=== PATIENT | female | born 1970 | race Caucasian/White ===

== ENCOUNTER → 2016-11-05 | Outpatient (CLI) | payer BC ==
[~2016-11-05] MED LIST: HYDR-757 PO; SULF1TAB35 PO
--- NOTE | 2016-11-06 13:40 | Diagnostic Imaging Report ---
Bilateral screening mammogram. The current study was also evaluated with a Computer Aided Detection (CAD) system. INDICATION: Screening. No current complaints stated on the questionnaire. COMPARISON: 10/24/14 FINDINGS: The breasts are composed of scattered fibroglandular densities. Occasional benign-appearing calcifications are seen. Allowing for technique and positional differences, no suspicious change is seen. IMPRESSION: No significant change. ACR BI-RADS Category 2: Benign findings. Result letter will be mailed to the patient. Note: At least 10% of breast cancer is not imaged by mammography. Dictated by: Dictated on workstation # [id number]
== END ==
LOC: RAD 13:28
PROVIDERS: ATTEND Obstetrics & Gynecology
DX: Z12.31 Encounter for screening mammogram for malignant neoplasm of breast (principal)
CPT/HCPCS: 77067

== ENCOUNTER → 2018-03-25 | Outpatient (CLI) | payer BC ==
[~2018-03-25] MED LIST changes: +ACHD5005 PO; +HYDR-4226 PO; -HYDR-757 PO
--- NOTE | 2018-03-25 11:44 | Diagnostic Imaging Report ---
INDICATION: Followup fracture. Patient complains of tingling in the hand. TIME OF EXAM: 11:56 AM Correlation is made with prior left hand radiograph from 02/11/2018. FINDINGS: Fracture involving the base of the fifth metacarpal is again seen. Fracture line remains clearly visible. Overall alignment remains anatomic. No new fracture is seen. Remaining metacarpals are intact. Phalanges are intact. Carpus is unremarkable. IMPRESSION: Fracture at the base of fifth metacarpal remains clearly visible without significant healing. Overall alignment is anatomic. Dictated by: Dictated on workstation # [id number]
== END ==
LOC: RAD 11:18
DX: S62.347 Nondisplaced fracture of base of fifth metacarpal bone, left hand (principal)
CPT/HCPCS: 73130

== ENCOUNTER 2019-12-21 22:36 | Emergency (ER) | payer BC ==
[~2019-12-21] VITALS: Ht 170 cm; Wt 85.0 kg
[2019-12-21] MEDS ORDERED: TETANUS,DIPTH,PERTUSS P/F (BOOSTRIX) 0.5 ML VIAL IM ONE (23:45)
[2019-12-21] MEDS ORDERED: KETOROLAC 60 MG/2 ML VIAL IM STA (23:56)
[2019-12-21] MEDS ORDERED: RX-MUPIROCIN (BACTROBAN) 2% OINT 22 GM TUBE TOP STA (23:56)
--- NOTE | 2019-12-22 00:03 | ED Upper Extremity ---
General Chief Complaint: Upper Extremity Stated Complaint: L WRIST PAIN Source: patient Exam Limitations: no limitations (BLADE POLLARD,) History of Present Illness Date Seen by Provider: Dec 21, 2019 Time Seen by Provider: 23:40 Initial Comments Ms. Aguilar is here at the ER regarding L wrist pain and swelling. Her 80 pound dog pulled her down the stairs, she twirled, and landed backward. She denies hitting her head. She rates her pain 7/10 and says "it feels like a hot knife being drilled into this joint". Pt also felt a "reverberation of pain" and did not get up immediately. She also has pain in her right hip. She states her wrist is numb because she has had ice on it since the injury occurred. Pt admits to taking "a shot of [place]" prior to arrival for pain. Also has skid salcido along wrist and a rope burn from the dog leash. Onset: just prior to arrival Pain/Injury Location: left wrist Method of Injury: fell Modifying Factors: Improves With Cold Therapy; Worse With Movement (BLADE GIVENS,) Initial Comments Report of left wrist pain as well as pain in the left arm after falling down a few steps as noted above. Moving hand and wrist okay. Denies loss of consciousness. Onset: just prior to arrival (approximately one hour ago) Method of Injury: fell Modifying Factors: Improves With Cold Therapy, Improves With Immobilization; Worse With Movement (JALYN BRUNO MD) Allergies and Home Medications Allergies Coded Allergies: bacitracin (Verified Allergy, Unknown, 02/11/18) neomycin (Verified Allergy, Unknown, 04/15/15) polymyxin B (Verified Allergy, Unknown, 04/15/15) Home Medications Hydrocodone Bit/Acetaminophen 1 Tab Tab, 1 EACH PO Q6H PRN for BREAKTHROUGH PAIN Prescribed by: DELFINO GOMEZ on 02/11/182052 Patient Home Medication List Home Medication List Reviewed: Yes (BLADE POLLARD,) Home Medication List Reviewed: Yes (JALYN BRUNO MD) Review of Systems Constitutional: No chills, No fever EENTM: no symptoms reported Respiratory: No cough, No short of breath Cardiovascular: No chest pain Gastrointestinal: no symptoms reported Genitourinary: no symptoms reported Musculoskeletal: see HPI Skin: see HPI Psychiatric/Neurological: No Symptoms Reported (BLADE POLLARD,) Respiratory: No cough, No short of breath Cardiovascular: No chest pain, No palpitations Gastrointestinal: no symptoms reported Skin: change in color, lesions (a few abrasions) Psychiatric/Neurological: No Symptoms Reported (JALYN BRUNO MD) Past [place]-Lzhobn-Ulknfa Hx Past Med/Social Hx: Reviewed Nursing Past Med/Soc Hx (JALYN BRUNO MD) Patient Social History Alcohol Use: Occasionally Uses Recreational Drug Use: No Smoking Status: Current Everyday Smoker Type Used: Cigarettes 2nd Hand Smoke Exposure: No Recent Foreign Travel: No Contact w/Someone Who Travel: No Recent Hopitalizations: No Physical Abuse: No Sexual Abuse: No Mistreated: No Fear: No (BLADE POLLARD,) Immunizations Up To Date Tetanus Booster (TDap): Unknown (BLADE POLLARD,) Past Medical History Surgeries: Yes Section Respiratory: No Cardiac: Yes Hypertension Neurological: Yes Headaches /Migraines Genitourinary: No Gastrointestinal: No Musculoskeletal: No Endocrine: No HEENT: No Cancer: No Psychosocial: Yes Anxiety Integumentary: No Blood Disorders: No (BLADE POLLARD,) Family Medical History Reviewed Nursing Family Hx (JALYN BRUNO MD) Cancer (breast cancer in aunt), Diabetes (grandmother), Other Conditions/Hx (father at a young age, unknown cause) (BLADE POLLARD,) Physical Exam Vital Signs Vital Signs - First Documented 12/21/19 23:09 Temp 36.6 Pulse 76 Resp 18 B/P (MAP) 129/93 (105) O2 Delivery Room Air (JALYN BRUNO MD) Vital Signs Capillary Refill : (BLADE POLLARD,) Height, Weight, BMI Height: 5'7" Weight: 200lbs. oz. 90.506341rg; 40.56 BMI Method:Stated General Appearance: WD/WN, no apparent distress HEENT: PERRL/EOMI Neck: full range of motion, normal inspection Cardiovascular: regular rate, rhythm, no murmur Respiratory: lungs clear, normal breath sounds Wrist: Yes abrasions; No limited ROM; Yes pain, Yes soft tissue tenderness, Yes swelling Neurologic/Tendon: normal sensation Skin: normal color, warm/dry (BLADE POLLARD,) General Appearance: WD/WN, no apparent distress Neck: full range of motion, normal inspection Cardiovascular: regular rate, rhythm, no murmur Respiratory: lungs clear, normal breath sounds Wrist: Yes abrasions (left hand and wrist), Yes pain, Yes soft tissue tenderness, Yes swelling (left wrist) Neurologic/Tendon: normal sensation, normal motor functions Neurologic/Psychiatric: alert, oriented x 3 Skin: normal color, warm/dry, ecchymosis, other (abrasions as noted above) ( JALYN BRUNO MD) Progress/Results/Core Measures Results/Orders My Orders Orders - JALYN BRUNO MD Wrist, Left, 3 Views Or More (12/21/19 23:17) Dipht,Pertuss(Acell),Tet Adult (Boostrix (12/21/19 23:45) Ketorolac Injection (Toradol Injection) (12/21/19 23:56) Rx-Mupirocin 2% Oint (Rx-Bactroban) (12/21/19 23:56) (JALYN BRUNO MD) Vital Signs/I&O 12/21/19 23:09 Temp 36.6 Pulse 76 Resp 18 B/P (MAP) 129/93 (105) O2 Delivery Room Air (JALYN BRUNO MD) Progress Progress Note : Progress Note I have seen and evaluated the patient and agree with above except as indicated. Have directed the plan of care. X-ray left wrist ordered. Toradol 60 mg IM, tetanus updated and mupirocin ointment over wounds. No acute findings on x-ray. Discharged home with return precautions. Patient verbalize understanding instructions and agreement with plan. (JALYN BRUNO MD) Diagnostic Imaging Diagonstic Imaging: Xray Plain Films/CT/US/NM/MRI: other (left wrist) Comments Three-view left wrist shows no acute fractures (JALYN BRUNO MD) Departure Impression Primary Impression: Multiple contusions Additional Impressions: Multiple abrasions Left wrist sprain Qualified Codes: S63.502A - Unspecified sprain of left wrist, initial encounter Disposition: HOME, SELF-CARE Condition: Stable Departure-Patient Inst. Decision time for Depature: 00:13 (JALYN BRUNO MD) Referrals: BARRERA PIÑA MD (PCP/Family) Primary Care Physician Patient Instructions: Contusion (DC), Skin Abrasions (DC), Wrist Sprain (DC) Add. Discharge Instructions: All discharge instructions reviewed with patient and/or family. Voiced understanding. You may take ibuprofen 600 mg every 8 hours as needed for pain. You may also take Tylenol/acetaminophen 1000 mg every 8 hours as needed for pain. You may use ice packs to areas concern 20 minutes per hour as needed to reduce swelling and pain. You may use your wrist splint as needed to the left wrist to reduce pain over the next few days. Return for worse pain, swelling, weakness, numbness or other concerns as needed. BLADE POLLARD, Dec 22, 2019 00:03 JALYN BRUNO MD Dec 22, 2019 00:11
[2019-12-22 00:33] VITALS: BP 128/90
--- NOTE | 2019-12-22 08:36 | Diagnostic Imaging Report ---
INDICATION: Pain and bruising after fall. FINDINGS: No fracture or dislocation identified. There is chronic osteoarthritic changes. There is some chronic relative foreshortening of the ulna with respect to the radius. The lunate showed no evidence for its necrosis. IMPRESSION: No acute appearing abnormality. Dictated by: Dictated on workstation # [id number]
== END 2019-12-22 00:34 | disposition home or self-care (01) ==
LOC: EDUNIT# 22:36 → ER 22:37
DX: S63.502A Unspecified sprain of left wrist, initial encounter (principal); T14.8XXA Other injury of unspecified body region, initial encounter; F17.210 Nicotine dependence, cigarettes, uncomplicated; I10 Essential (primary) hypertension; W10.9XXA Fall (on) (from) unspecified stairs and steps, initial encounter; Y93.K1 Activity, walking an animal; Z23 Encounter for immunization
CPT/HCPCS: 73110; 90471; 90715; 96372

== ENCOUNTER → 2023-01-27 | Outpatient (CLI) | payer BC ==
[~2023-01-27] MED LIST changes: -SULF1TAB35 PO; +SULF1TAB38 PO
--- NOTE | 2023-01-28 14:34 | Diagnostic Imaging Report ---
INDICATION: Routine screening. COMPARISON: 02/19/2018 and 11/05/2016. TECHNIQUE: 2D and 3D bilateral screening mammography was performed with CAD. FINDINGS: Scattered fibroglandular densities are identified bilaterally. The circumscribed nodule in the retroareolar right breast appears stable to slightly smaller on today's study. No spiculated mass or malignant-appearing microcalcifications are seen. The axillae are unremarkable. IMPRESSION: No mammographic features suspicious for malignancy are identified. ACR BI-RADS Category 2: Benign findings. Result letter will be mailed to the patient. Note: At least 10% of breast cancer is not imaged by mammography. Dictated by: Dictated on workstation # [id number]
== END ==
LOC: RAD 15:16
PROVIDERS: ATTEND Family Medicine
DX: Z12.31 Encounter for screening mammogram for malignant neoplasm of breast (principal)
CPT/HCPCS: 77063; 77067

== ENCOUNTER 2023-05-06 12:09 | Outpatient (CLI) | payer BC ==
[~2023-05-06] VITALS: Ht 170.2 cm; Wt 96.4 kg
[2023-05-06] MEDS ORDERED: HYDR25TA4 PO (17:05)
[2023-05-06] MEDS ORDERED: ACET-168 PO (17:05)
[2023-05-06] MEDS ORDERED: NAPR220T66 PO (17:05)
== END 2023-05-06 17:31 | disposition home or self-care (01) ==
LOC: PREOP 12:09
PROVIDERS: ATTEND Obstetrics & Gynecology
DX: Z01.818 Encounter for other preprocedural examination (principal)

== ENCOUNTER 2023-05-19 09:06 | Day surgery (SDC) | payer BC ==
[2023-05-19] VITALS (11 sets, daily range): BP systolic 129–154; BP diastolic 78–100
[~2023-05-19] VITALS: Ht 170.2 cm; Wt 96.4 kg
[~2023-05-19 09:06] MED LIST changes: +ACET-168 PO; +HYDR25TA4 PO; +NAPR220T66 PO
[2023-05-19] MEDS ORDERED: LACTATED RINGERS 1,000 ML 1,000 ML IV PRN (09:15)
--- NOTE | 2023-05-19 09:59 | OB/GYN Operative Report ---
Operative Report Date of Procedure:May 19, 2023 Preoperative Diagnosis:ROX-2 Postoperative Diagnosis: Same Name of the Procedure: Cold knife conization Surgeon: Christina Capps Interior Design Consultant(s): [none] Anesthesia: General LMA Indications for Procedure: Patient had HSIL on her Pap smear followed with colposcopy which was ROX-2. She is here today for a cold knife conization Findings of the Procedure: [] Description of the Procedure: Informed consent was obtained and signed patient was taken to or [facility]. 6 placed under general LMA anesthesia placed in the dorsolithotomy position prepped and draped usual sterile fashion. A timeout was performed. A weighted speculum was placed into the posterior vaginal vault and single-tooth tenaculum was used to grasp the anterior lip of the cervix. The cervix was injected with 2% lidocaine with epi circumferentially. Using the angled scalpel a cervical conization was performed. The biopsy was sent to pathology for further analysis. The the biopsy site was cauterized and then 2-0 Vicryl was used to do a running locking stitch around the edges of the biopsy site. The patient tolerated the procedure well and was taken to recovery room in stable condition. The estimated blood loss was less than 25 cc fluids 900 cc urine output 50 cc all my counts were correct x 2 Complications: None Disposition: Counts correct x 2 patient taken to recovery room in stable condition CHRISTINA CAPPS DO May 19, 2023 09:59
--- NOTE | 2023-05-19 09:59 | Progress Note-Pre Operative ---
Pre-Operative Progress Note Date H&P Reviewed: May 19, 2023 Time H&P Reviewed: 09:40 History & Physical: H&P Reviewed, No changes noted Pre-Operative Diagnosis: ROX-2 plan: cold knife cone CHRISTINA CAPPS DO May 19, 2023 09:59
--- NOTE | 2023-05-19 10:00 | Discharge Inst-Simple/Standard ---
Discharge Inst-Standard Reconcile Patient Problems Problems Reviewed?: Yes Discharge Medications New, Converted or Re-Newed RX: Transmitted to Pharmacy Patient Instructions/Follow Up Plan of Care/Instructions/FU: Follow-up 1 week Nothing in vagina no sex, tampons, douching Call if increased bleeding, temperature over 101 F or increased pain Activity as Tolerated: Yes Discharge Diet: Regular Diet CHRISTINA CAPPS DO May 19, 2023 10:00
[2023-05-19] MEDS ORDERED: SEVOFLURANE (ULTANE) 15 ML INHAL SOLN ONE (10:37)
[2023-05-19] MEDS ORDERED: dexAMETHasone INJ 10 MG/ML 1 ML VIAL ONE (10:37)
[2023-05-19] MEDS ORDERED: ONDANSETRON INJECTION 4 MG/2 ML (SDV) ONE (10:37)
[2023-05-19] MEDS ORDERED: LIDOCAINE PF 2% 5 ML VIAL ONE (10:37)
[2023-05-19] MEDS ORDERED: proPOfol INJECTION 200 MG/20 ML VIAL IV ONE (10:37)
[2023-05-19] MEDS ORDERED: fentaNYL INJECTION 100 MCG/2 ML VIAL ONE ×2 (10:37→13:09)
[2023-05-19] MEDS ORDERED: MIDAZOLAM INJ 2 MG/2 ML VIAL ONE (10:38)
[2023-05-19] MEDS ORDERED: LIDOCAINE 2% w/EPI 1:100,000 20 ML VIAL ONE (11:06)
[2023-05-19] MEDS ORDERED: RT-ALBUTEROL HFA 8.5 GM INHALER IH ONE (12:22)
--- NOTE | 2023-05-19 12:51 | Anesthesia-General Post-Op ---
General Patient Condition Mental Status/LOC: Same as Preop Cardiovascular: Satisfactory Nausea/Vomiting: Absent Respiratory: Satisfactory Pain: Controlled Complications: Absent Post Op Complications Complications None Follow Up Care/Instructions Patient Instructions None needed. Anesthesia/Patient Condition Patient Condition Patient is doing well, no complaints, stable vital signs, no apparent adverse anesthesia problems. No complications reported per nursing. CHRISTIE DE LA CRUZ CRNA May 19, 2023 12:51
[2023-05-19] MEDS ORDERED: MEPERIDINE INJ 50 MG/ML VIAL IVP ONE (13:00)
[2023-05-19] MEDS ORDERED: ONDANSETRON INJECTION 4 MG/2 ML (SDV) IVP PRN (13:00)
[2023-05-19] MEDS ORDERED: fentaNYL INJECTION 100 MCG/2 ML VIAL IVP ONE (13:00)
[2023-05-19] MEDS ORDERED: morphine INJ 10 MG/ML 1ML (SYR OR VIAL) IVP ONE (13:00)
[2023-05-19] MEDS ORDERED: ACHD5005 PO (13:07)
== END 2023-05-19 14:30 | disposition home or self-care (01) ==
LOC: SDC 09:06
PROVIDERS: ATTEND Obstetrics & Gynecology
DX: N87.1 Moderate cervical dysplasia (principal); F17.210 Nicotine dependence, cigarettes, uncomplicated
CPT/HCPCS: 57520; 84703; 87081; C1765; 88307